=== PATIENT | male | born 1960 | race Caucasian/White ===

== ENCOUNTER → 2022-09-30 11:11 | Outpatient (CLI) | payer OTHER, SELFPAY ==
--- NOTE | 2022-09-30 | DI.RAD.S_ITS ---
PROCEDURE: XR HIP W PEL IF DONE ANNEL MIN 4V INDICATIONS: HIP PAIN TECHNIQUE: AP pelvis with lateral views of the right and left hips. COMPARISON: [facility], CR, XR PELVIS WITH LATERAL HIP LEFT, 12/07/2018, 9:29. FINDINGS: Bones: No acute fractures or dislocations. Pelvic ring appears intact. No suspicious bony lesions. Mild degenerative changes in the hips bilaterally. Soft tissues: The visualized bowel gas pattern is normal. No suspicious soft tissue calcifications. IMPRESSION: Mild bilateral hip osteoarthrosis. Approved by: Shekhar Avilez M.D. on 09/30/2022 at 14:17
--- NOTE | 2022-09-30 | DI.CT.S_ITS ---
PROCEDURE: CT SOFT TISSUE NECK W CON INDICATIONS: ENLARGED LYMPH NODES TECHNIQUE: After the administration of intravenous contrast, 3.0 mm axial sections acquired from the sella to the aortic arch. Additional oblique axial 3.0 mm sections acquired through the pharynx. 3 mm thick coronal and sagittal reformats were generated. For radiation dose reduction, the following was used: automated exposure control. COMPARISON: [facility], US, US SOFT TISSUE HEAD OR NECK, 03/01/2022, 11:26. FINDINGS: Skull Base: The visualized intracranial contents, skull, and orbits are unremarkable. Visualized paranasal sinuses are clear. Pharynx and Larynx: The nasopharyngeal airway is patent and midline. Parapharyngeal soft tissues including palatine tonsils and base of the tongue are normal. Retropharyngeal space unremarkable. Normal appearance of the false and true vocal cords. Muscles and Fascial Planes: Fascial planes are well maintained. No abscess or mass lesion. Lymph Nodes: Scattered nonenlarged deep cervical and submental lymph nodes noted Vasculature: Unremarkable. Submandibular and Parotid Glands: 1.3 x 0.5 cm hypodensity in the left parotid gland. Right parotid and both man submandibular glands unremarkable. Thyroid: Unremarkable. No enlarged or calcified nodules. Bones: No acute fracture. No osteolytic or blastic lesion is evident. Normal bone mineralization. 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 Lung Apices: The visualized lung apices are clear. Old healed right posterior rib fractures IMPRESSION: 1. Hypodensity in the left parotid gland corresponds with the findings on prior ultrasound common reflect a intraparotid cyst or cystic nonenlarged lymph node, stable in size from the prior Approved by: Robert Rucker M.D. on 09/30/2022 at 19:23
== END ==
PROVIDERS: PCP Nurse Practitioner Family; Referring Provider Nurse Practitioner Family; Visit Provider Nurse Practitioner Family
DX: M16.0 Bilateral primary osteoarthritis of hip (principal); R59.0 Localized enlarged lymph nodes
CPT/HCPCS: 70491; 73522; Q9967